=== PATIENT | male | born 1985 | race Two or more races ===

== ENCOUNTER 2016-08-22 10:47 | Emergency (ER) | payer OTHER ==
[2016-08-22] MEDS ORDERED: ONDANSETRON 4 MG ODT TAB ONE (11:53)
[2016-08-22] MEDS ORDERED: ACETAMINOPHEN 500 MG TABLET ONE (11:53)
[2016-08-22] MEDS ORDERED: PREDNISONE 10 MG TABLET ONE (11:53)
[2016-08-22] MEDS ORDERED: HYDROMORPHONE HCL 2 MG/ML SYRINGE ONE (11:53)
== END 2016-08-22 12:10 | disposition home or self-care (01) ==
LOC: ED 10:47
DX: M54.9 Dorsalgia, unspecified (principal); I10 Essential (primary) hypertension; Z87.891 Personal history of nicotine dependence
CPT/HCPCS: 99283 ×2; 96372; J1170; J7512; A9270 ×2